=== PATIENT | female | born 1980 | race Caucasian/White ===

== ENCOUNTER 2017-03-24 14:02 | Emergency (ER) | payer BC ==
[~2017-03-24] VITALS: Ht 165.1 cm; Wt 63.8 kg
[~2017-03-24 14:02] MED LIST: PRENTAB26 PO
[2017-03-24 14:22] VITALS: TEMP 36.8; Ht 165.1 cm; Wt 63.8 kg
--- NOTE | 2017-03-24 14:43 | EMERGENCY ROOM VISIT NOTE ---
ED Visit Note First contact with patient: 14:32 CHIEF COMPLAINT: Foot pain HISTORY OF PRESENT ILLNESS: This 37-year-old female patient presents to the emergency department ambulatory complaining of swelling and pain in the right foot at rest and worse with weight bearing. The patient was [place] curb [place] and twisted her foot. The patient rates the pain as sharp and 2/10. The patient has no relief of the pain. The patient is able to walk. No numbness or weakness. No ankle pain. There are no lacerations of the foot. The patient is able to move all of their toes and their ankle without pain. Patient denies previous injury to this foot. REVIEW OF SYSTEMS: GENERAL: A 6 system review of systems was completed with positives and pertinent negatives in the HPI. ALLERGIES: Hydrocodone, oxycodone MEDICATIONS: Patient denies PMH: Patient denies SOCIAL HISTORY: The patient lives locally. She does not smoke PHYSICAL EXAM: Vital Signs: Reviewed Nurse's notes, vital signs stable. GENERAL : This is a 37-year-old female, in no acute distress, but appears in pain, well- developed, well-nourished. MUSCULOSKELETAL: There is no visual deformity of the right foot. There is no erythema but moderate ecchymosis over the fifth metatarsal. There is no warmth. There is tenderness and swelling over the lateral aspect of the right foot. The range of motion of the foot is mildly limited secondary to pain. There is no tenderness over the plantar fascia. Dorsi flexion 5/5 and Plantar flexion 5/5. The skin is intact and there are no lacerations or puncture wounds. Dorsalis pedis pulse 2+. Capillary refill less than 2 seconds. EMERGENCY DEPARTMENT COURSE: I examined the patient. An X-ray of the right foot was reviewed by myself and radiology and reveals no fracture or dislocation. The patient was placed in a walking boot shoe and instructed on the use of crutches. She declined pain medication. The patient states that she will follow up with Dr. Hernandez's office. She should follow with them in 5-7 days if she is not having any significant improvement. The patient was discharged home in good condition. DIAGNOSIS: Foot pain TREATMENT: Ice and elevation for 24-48 hrs. Ibuprofen, 600mg every 6 hours for the pain. Wear the walking boot for the next 5-7 days and use crutches with weight bearing as tolerated. Follow up with family doctor or orthopedic surgeon if symptoms persist in 5-7 days for further evaluation and management. RIGHT FOOT 3 VIEWS HISTORY: right foot pain, swelling Right COMPARISON: None. FINDINGS: There is no fracture or dislocation. Soft tissues are unremarkable. No radiopaque foreign bodies. Well-corticated ossific density medial to the first interphalangeal joint is likely due to an old injury. IMPRESSION: No acute fractures. Current/Historical Medications No Active Prescriptions or Reported Meds Allergies Coded Allergies: Hydrocodone (Verified Adverse Reaction, Mild, NAUSEA/ VOMITTING, 04/08/12) Oxycodone (Verified Adverse Reaction, Mild, NAUSEA/ VOMITTING, 04/08/12) Vital Signs Date Time Temp Pulse Resp B/P (MAP) Pulse Ox O2 Delivery O2 Flow Rate FiO2 03/24/17 15:36 78 111/81 98 03/24/17 14:22 36.8 82 20 108/75 100 Room Air Departure Information Impression Primary Impression: Sprain of foot Dispostion Home / Self-Care Condition GOOD Prescriptions No Active Prescriptions or Reported Meds Referrals Faye Torres D.O. (PCP) Que Hernandez D.O. Patient Instructions ED Sprain Foot, [facility] Additional Instructions Ice and elevation for 24-48 hrs. Ibuprofen, 600mg every 6 hours for the pain. Wear the walking boot for the next 5-7 days and use crutches with weight bearing as tolerated. Follow up with family doctor or orthopedic surgeon if symptoms persist in 5-7 days for further evaluation and management. Problem Qualifiers Primary Impression: Sprain of foot Encounter type: initial encounter Laterality: right Qualified Codes: S93.601A - Unspecified sprain of right foot, initial encounter
--- NOTE | 2017-03-24 15:10 | DIAGNOSTIC IMAGING REPORT ---
RIGHT FOOT 3 VIEWS HISTORY: right foot pain, swelling Right COMPARISON: None. FINDINGS: There is no fracture or dislocation. Soft tissues are unremarkable. No radiopaque foreign bodies. Well-corticated ossific density medial to the first interphalangeal joint is likely due to an old injury. IMPRESSION: No acute fractures. Electronically signed by: Xander Posey M.D. 03/24/2017 3:08 PM Dictated Date/Time: 03/24/2017 3:06 PM
[2017-03-24 15:36] VITALS: BP 111/81; PULSE 78; O2SAT 98
== END 2017-03-24 15:38 | disposition home or self-care (01) ==
LOC: C.EDB 14:04 → C.EDD 15:38
DX: S93.601A Unspecified sprain of right foot, initial encounter (principal); X50.1XXA Overexertion from prolonged static or awkward postures, initial encounter

== ENCOUNTER → 2017-09-10 | Outpatient (CLI) | payer BC | END | disposition home or self-care (01) | LOC: C.PAPS 10:48 | PROVIDERS: ATTEND Physician Assistant | DX: Z01.419 Encounter for gynecological examination (general) (routine) without abnormal findings (principal); Z87.42 Personal history of other diseases of the female genital tract ==